=== PATIENT | female | born 1970 | race Caucasian/White ===

== ENCOUNTER 2021-06-18 15:42 | Outpatient (CLI) | payer BC, MEDICARE ==
[2021-06-18 16:34] LABS: Hemoglobin 12.9 g/dL (12.0-15.5); Mean Corpuscular HGB CONC 33.7 g/dL (32.0-36.0); Mean Platelet Volume 10.3 fl (7.4-10.4); Platelet Count 229 10x3/uL (150-450); RBC Distribution Width 11.9 % (11.5-14.5); Red Blood Cell (RBC) Count 4.03 10x6/uL (3.90-5.03); White Blood Cell (WBC) Count 6.2 10x3/uL (3.5-10.5)
[2021-06-18 16:44] LABS: Anion Gap 10 mmol/L (10-20); BUN (Urea Nitrogen) 14 mg/dL (9.8-20.1); Calc. Creatinine Clearance 0 mL/min (70-130); Calcium 9.6 mg/dL (7.8-10.44); Carbon Dioxide 28 mmol/L (22-29); Chloride 107 mmol/L (98-107); Glucose 89 mg/dL (70-105); Sodium 141 mmol/L (136-145)
[2021-06-19 00:28] LABS: SARS-CoV-2 PCR by NAA Not Detected (NotDetected)
== END 2021-06-18 15:43 | disposition home or self-care (01) ==
LOC: CSHLAB 15:42
PROVIDERS: ATTEND Podiatrist Foot & Ankle Surgery
DX: Z01.818 Encounter for other preprocedural examination (principal); Z20.822 Contact with and (suspected) exposure to COVID-19
CPT/HCPCS: 80048; 85027; 93005; 93010; U0003; U0005

== ENCOUNTER 2021-06-20 10:59 | Day surgery (SDC) | payer BC, MEDICARE ==
[2021-06-19 11:02] VITALS: BMI 24.0
[~2021-06-20 10:59] MED LIST: Bupivacaine PF 0.5% 30 ML VIAL ONE; Neomycin-Polymyxin 1 ML AMP ONE
[2021-06-20] MEDS ORDERED: Lidocaine 1% MPF 2 ML VIAL ONE (11:37)
[2021-06-20] MEDS ORDERED: Neomycin-Polymyxin 1 ML AMP ONE (12:44)
[2021-06-20] MEDS ORDERED: Scopolamine 1.5 mg/72 hour Patch ONE (13:10)
[2021-06-20] MEDS ORDERED: Famotidine/PF 20 mg/2ml Vial ONE ×2 (13:11→13:21)
[2021-06-20] MEDS ORDERED: Midazolam HCl 2 mg/2 ml Vial ONE (13:11)
[2021-06-20] MEDS ORDERED: Fentanyl 100 MCG/2 ML VIAL ONE (13:17)
[2021-06-20] MEDS ORDERED: PROPOFOL 20 ML ONE (13:17)
[2021-06-20] MEDS ORDERED: PHENYLEPHRINE-NS 100 MCG/ML 10 ML SYRINGE ONE ×2 (13:18→14:10)
[2021-06-20] MEDS ORDERED: Ondansetron PF 4 MG/2 ML Vial ONE (13:18)
[2021-06-20] MEDS ORDERED: Metoclopramide HCl 10 MG/2 ML VIAL ONE (13:18)
[2021-06-20] MEDS ORDERED: Lidocaine 2% PF 5 ML VIAL ONE (13:18)
[2021-06-20] MEDS ORDERED: Dexamethasone 4 mg/ml Vial ONE (13:18)
[2021-06-20] MEDS ORDERED: CEFAZOLIN 1 GM VIAL ONE (13:47)
[2021-06-20] MEDS ORDERED: Ketorolac Tromethamine 30 MG/ML VIAL ONE (14:16)
== END 2021-06-20 15:30 | disposition home or self-care (01) ==
LOC: CSHSDC 10:59
PROVIDERS: ATTEND Podiatrist Foot & Ankle Surgery
PROC: 01BG0ZZ Excision of Tibial Nerve, Open Approach (ICD-10-PCS; principal; 2021-06-20)
DX: G57.81 Other specified mononeuropathies of right lower limb (principal); F41.9 Anxiety disorder, unspecified; E03.9 Hypothyroidism, unspecified; Z90.49 Acquired absence of other specified parts of digestive tract; Z90.710 Acquired absence of both cervix and uterus; Z79.899 Other long term (current) drug therapy
CPT/HCPCS: 88304; J0690; J1100; J1885; J2001; J2250; J2405; J2704; J2765; J3010; J3490; S0020; S0028

== ENCOUNTER 2022-11-25 20:29 | Emergency (ER) | payer BC, MEDICARE ==
[2022-11-27] MEDS ORDERED: Ibuprofen 200 MG TAB ONE (10:10)
== END 2022-11-25 21:35 ==
LOC: CSHERS 20:29
DX: Z53.21 Procedure and treatment not carried out due to patient leaving prior to being seen by health care provider (principal)

== ENCOUNTER 2024-08-10 14:05 | Emergency (ER) | payer MEDICARE, BC ==
[2024-08-10] MEDS ORDERED: Lorazepam 2 MG/ML VIAL ONE (14:47)
[2024-08-10] MEDS ORDERED: fentaNYL 50 mcg/mL 1 mL Vial ONE (14:48)
[2024-08-10] MEDS ORDERED: Dexamethasone 10 MG/ML VIAL ONE (14:48)
[2024-08-10] MEDS ORDERED: Ondansetron PF 4 MG/2 ML Vial ONE (14:48)
[2024-08-10] MEDS ORDERED: Meclizine HCl 25 MG TAB ONE (14:48)
[2024-08-10 15:09] LABS: #Basophils 0.03 10x3/uL (0.0-0.2); #Eosinophils 0.16 10x3/uL (0.0-0.5); #Monocytes 0.66 10x3/uL (0.0-1.1); %Basophils 0.3 % (0.0-2.0); %Eosinophils 1.7 % (0.0-6.0); %Lymphocytes 24.5 % (18.0-47.0); %Monocytes 7.2 % (0.0-10.0); %Neutrophils 66.1 % (40.0-75.0); Hematocrit 40.5 % (34.9-44.5); Hemoglobin 13.8 g/dL (12.0-15.5); Mean Corpuscular HGB CONC 34.1 g/dL (32.0-36.0); Mean Corpuscular Hemoglobin 31.7 pg (27.0-33.0); Mean Corpuscular Volume 93.1 fL (81.6-98.3); Mean Platelet Volume 9.8 fL (7.4-10.4); Platelet Count 204 10x3/uL (150-450); RBC Distribution Width 12.2 % (11.5-14.5); Red Blood Cell (RBC) Count 4.35 10x6/uL (3.90-5.03); White Blood Cell (WBC) Count 9.2 10x3/uL (3.5-10.5)
[2024-08-10 15:14] LABS: ALT (SGPT) 17 U/L (8-55); AST (SGOT) 26 U/L (5-34); Alkaline Phosphatase 58 U/L (40-110); Anion Gap 13 mmol/L (10-20); BUN (Urea Nitrogen) 12 mg/dL (9.8-20.1); Calc. Creatinine Clearance 0 mL/min (70-130); Calcium 9.5 mg/dL (7.8-10.44); Carbon Dioxide 25 mmol/L (22-29); Chloride 104 mmol/L (98-107); Estimated GFR 88; Glucose 69 mg/dL (70-105); Potassium 3.9 mmol/L (3.5-5.1); Sodium 138 mmol/L (136-145)
[2024-08-10 15:19] LABS: Troponin I Less than 0.010 ng/mL (< 0.028)
== END 2024-08-10 16:23 | disposition home or self-care (01) ==
LOC: CSHERS 14:05
DX: R42 Dizziness and giddiness (principal); R07.89 Other chest pain; R29.704 NIHSS score 4; I10 Essential (primary) hypertension
CPT/HCPCS: 70450; 71045; 80053; 83880; 84484; 85025; 85379; 93005; J1100; J2060; J2405; J3010; 96374; 96375

== ENCOUNTER 2025-03-11 18:43 | Outpatient (CLI) | payer MEDICARE | END 2025-03-11 18:44 | disposition home or self-care (01) | LOC: CSHMRI 18:43 | PROVIDERS: ATTEND Internal Medicine | DX: M54.50 Low back pain, unspecified (principal); M47.816 Spondylosis without myelopathy or radiculopathy, lumbar region; Z96.698 Presence of other orthopedic joint implants | CPT/HCPCS: 72158 ==

== ENCOUNTER 2025-05-10 08:21 | Emergency (ER) | payer MEDICARE | END 2025-05-10 10:38 | disposition home or self-care (01) | LOC: CSHERS 08:21 | DX: S69.91XA Unspecified injury of right wrist, hand and finger(s), initial encounter (principal); I10 Essential (primary) hypertension; W10.9XXA Fall (on) (from) unspecified stairs and steps, initial encounter | CPT/HCPCS: 73110; 73200; J2060; 29105; 96374; 96375 ==

== ENCOUNTER 2025-06-23 17:25 | Emergency (ER) | payer MEDICARE ==
[2025-06-23 20:13] LABS: #Basophils 0.03 10x3/uL (0.0-0.2); #Eosinophils 0.30 10x3/uL (0.0-0.5); #Monocytes 0.67 10x3/uL (0.0-1.1); #Neutrophils 4.78 10x3/uL (1.5-8.4); %Basophils 0.4 % (0.0-2.0); %Eosinophils 3.5 % (0.0-6.0); %Lymphocytes 31.7 % (18.0-47.0); %Monocytes 7.9 % (0.0-10.0); %Neutrophils 56.3 % (40.0-75.0); Hematocrit 37.0 % (34.9-44.5); Hemoglobin 12.4 g/dL (12.0-15.5); Mean Corpuscular Hemoglobin 31.4 pg (27.0-33.0); Mean Corpuscular Volume 93.7 fL (81.6-98.3); Platelet Count 251 10x3/uL (150-450); Red Blood Cell (RBC) Count 3.95 10x6/uL (3.90-5.03); White Blood Cell (WBC) Count 8.49 10x3/uL (3.5-10.5)
[2025-06-23 20:27] LABS: ALT (SGPT) 165 U/L (Less than 34); AST (SGOT) 106 U/L (11-34); Albumin 4.0 g/dL (3.1-4.5); Alkaline Phosphatase 124 U/L (40-110); Anion Gap 13 mmol/L (10-20); BUN (Urea Nitrogen) 11 mg/dL (9.8-20.1); Bilirubin, Total 0.6 mg/dL (0.3-1.2); Calc. Creatinine Clearance 0 mL/min (70-130); Calcium 9.1 mg/dL (7.8-10.44); Carbon Dioxide 25 mmol/L (22-29); Chloride 104 mmol/L (98-107); Globulin 3.1 g/dL (2.4-3.5); Glucose 95 mg/dL (70-105); Potassium 3.9 mmol/L (3.5-5.1); Sodium 138 mmol/L (136-145)
== END 2025-06-23 20:51 | disposition home or self-care (01) ==
LOC: CSHERS 17:25
DX: L97.411 Non-pressure chronic ulcer of right heel and midfoot limited to breakdown of skin (principal); L03.115 Cellulitis of right lower limb; I10 Essential (primary) hypertension
CPT/HCPCS: 73630; 80053; 83605; 85025; 86140; J2272; 96374

== ENCOUNTER 2025-06-27 14:35 | Outpatient (CLI) | payer MEDICARE | END 2025-06-27 14:36 | disposition home or self-care (01) | LOC: CSHWCC 14:35 | PROVIDERS: ATTEND Nurse Practitioner Family | DX: L97.512 Non-pressure chronic ulcer of other part of right foot with fat layer exposed (principal); G90.09 Other idiopathic peripheral autonomic neuropathy; L08.9 Local infection of the skin and subcutaneous tissue, unspecified | CPT/HCPCS: 97597; G0463; 99213 ==

== ENCOUNTER 2025-07-05 08:25 | Outpatient (CLI) | payer MEDICARE | END 2025-07-05 08:26 | disposition home or self-care (01) | LOC: CSHWCC 08:25 | PROVIDERS: ATTEND Nurse Practitioner Family | DX: L97.512 Non-pressure chronic ulcer of other part of right foot with fat layer exposed (principal); G90.09 Other idiopathic peripheral autonomic neuropathy; L08.9 Local infection of the skin and subcutaneous tissue, unspecified | CPT/HCPCS: 11042 ==

== ENCOUNTER 2025-07-19 09:46 | Outpatient (CLI) | payer MEDICARE | END 2025-07-19 09:47 | disposition home or self-care (01) | LOC: CSHWCC 09:46 | PROVIDERS: ATTEND Nurse Practitioner Family | DX: L97.512 Non-pressure chronic ulcer of other part of right foot with fat layer exposed (principal); L08.9 Local infection of the skin and subcutaneous tissue, unspecified; G90.09 Other idiopathic peripheral autonomic neuropathy | CPT/HCPCS: 97597 ==

== ENCOUNTER 2025-07-26 08:10 | Outpatient (CLI) | payer MEDICARE | END 2025-07-26 08:11 | disposition home or self-care (01) | LOC: CSHWCC 08:10 | PROVIDERS: ATTEND Nurse Practitioner Family | DX: L97.512 Non-pressure chronic ulcer of other part of right foot with fat layer exposed (principal); G90.09 Other idiopathic peripheral autonomic neuropathy; L08.9 Local infection of the skin and subcutaneous tissue, unspecified ==

== ENCOUNTER 2025-08-02 10:54 | Outpatient (CLI) | payer MEDICARE | END 2025-08-02 10:55 | disposition home or self-care (01) | LOC: CSHWCC 10:54 | PROVIDERS: ATTEND Nurse Practitioner Family | DX: L97.512 Non-pressure chronic ulcer of other part of right foot with fat layer exposed (principal); G90.09 Other idiopathic peripheral autonomic neuropathy | CPT/HCPCS: 11042 ==